=== PATIENT | female | born 1970 | race Caucasian/White ===

== ENCOUNTER 2020-12-11 18:51 | Emergency (ER) | payer BC ==
[2020-12-11] MEDS ORDERED: Ondansetron PF 4 MG/2 ML Vial ONE (19:06)
[2020-12-11] MEDS ORDERED: Fentanyl 100 MCG/2 ML VIAL ONE (19:06)
[2020-12-11] MEDS ORDERED: Aspirin Chewable 81 MG TAB ONE ×2 (19:06→19:07)
[2020-12-11 19:20] LABS: #Basophils 0.1 thou/uL (0.0-0.2); #Eosinphils 0.1 thou/uL (0.0-0.7); #Lymphocytes 3.8 thou/uL (1.20-3.40); #Monocytes 0.5 thou/uL (0.11-0.59); #Neutrophils 5.1 thou/uL (1.40-6.50); %Basophils 1.1 % (0.0-1.0); %Eosinophils 1.2 % (0.0-10.0); %Lymphocytes 39.5 % (21.0-51.0); %Monocytes 5.5 % (0.0-10.0); %Neutrophils 52.8 % (42.0-75.0); Hemoglobin 15.9 g/dL (12.0-16.0); Mean Corpuscular HGB CONC 33.6 g/dL (32.0-36.0); Mean Corpuscular Hemoglobin 31.7 pg (27.0-31.0); Mean Corpuscular Volume 94.1 fL (78.0-98.0); Mean Platelet Volume 10.3 fL (7.4-10.4); Platelet Count 219 thou/uL (130-400); RBC Distribution Width 12.7 % (11.5-14.5); Red Blood Cell (RBC) Count 5.04 mill/uL (4.20-5.40); White Blood Cell (WBC) Count 9.7 thou/uL (4.8-10.8)
[2020-12-11 19:35] LABS: ALT (SGPT) 43 U/L (8-55); AST (SGOT) 49 U/L (5-34); Albumin 4.3 g/dL (3.5-5.0); Alkaline Phosphatase 135 U/L (40-110); Anion Gap 15 mmol/L (10-20); BUN (Urea Nitrogen) 8 mg/dL (7.0-18.7); Bilirubin, Total 0.4 mg/dL (0.2-1.2); Calc. Creatinine Clearance 0 mL/min (70-130); Calcium 10.5 mg/dL (7.8-10.44); Carbon Dioxide 23 mmol/L (22-29); Chloride 105 mmol/L (98-107); Globulin 3.6 g/dL (2.4-3.5); Glucose 174 mg/dL (70-105); Lipase 70 U/L (8-78); Potassium 3.5 mmol/L (3.5-5.1); Protein, Total 7.9 g/dL (6.0-8.3); Sodium 139 mmol/L (136-145)
[2020-12-11] MEDS ORDERED: Ketorolac Tromethamine 30 MG/ML VIAL ONE (20:04)
== END 2020-12-11 20:10 | disposition home or self-care (01) ==
LOC: BURERS 18:51
DX: F41.1 Generalized anxiety disorder (principal); Z63.79 Other stressful life events affecting family and household; R07.89 Other chest pain; E11.9 Type 2 diabetes mellitus without complications; E78.5 Hyperlipidemia, unspecified; I10 Essential (primary) hypertension; F17.210 Nicotine dependence, cigarettes, uncomplicated
CPT/HCPCS: 71045; 80053; 83690; 84484; 85025; 93005; 94760; 96374; 96375; J1885; J2405; J3010